=== PATIENT | male | born 1955 | race Caucasian/White ===

== ENCOUNTER → 2021-09-29 | Day surgery (SDC) | payer OTHER ==
[~2021-09-29] VITALS: Ht 180.3 cm; Wt 97.7 kg
[~2021-09-29] MED LIST: CEFDINIR300 MG PO; COZAAR50 MG PO; LIPITOR80 MG PO; MEDROL 4MG DOSEP4 MG PO; NORVASC10 MG PO; TYLENOL PM EX-1 EACH PO; ULORIC40 MG PO; VIBRAMYCIN100 MG PO; WELLBUTRIN XL300 MG PO; ZETIA10 MG PO
== END | disposition home or self-care (01) ==
LOC: FAS 11:09
DX: Z12.11 Encounter for screening for malignant neoplasm of colon (principal); K57.30 Diverticulosis of large intestine without perforation or abscess without bleeding; D12.5 Benign neoplasm of sigmoid colon; I10 Essential (primary) hypertension; M10.9 Gout, unspecified; Z86.010 Personal history of colon polyps; Z80.0 Family history of malignant neoplasm of digestive organs; Z85.46 Personal history of malignant neoplasm of prostate
CPT/HCPCS: J1610; J7120